=== PATIENT | female | born 1995 | race Caucasian/White ===

== ENCOUNTER 2016-07-17 07:51 | Emergency (ER) | payer BC ==
[~2016-07-17] VITALS: Ht 162.6 cm; Wt 117.9 kg
[~2016-07-17 07:51] MED LIST: BACTRIM DS TAB1 EACH PO; DEPO-PROVE150 MG/1 M; IBUPROFEN 600600 M1 PO; IBUPROFEN200 M2 PO; KEFLEX500 M1 PO; MACROBID 100 M100 M1 PO; NORCO 5-325 TA1 EACH PO; ZOLOFT 50 MG TA50 MG PO
[2016-07-17 08:24] LABS: URINE BILIRUBIN NEGATIVE (Negative); URINE BLOOD 1+ (Negative); URINE COLOR YELLOW; URINE GLUCOSE-RANDOM* NEGATIVE (Negative); URINE KETONES NEGATIVE (Negative); URINE NITRITE NEGATIVE (Negative); URINE PROTEIN (DIPSTICK) NEGATIVE (Negative); URINE SPECIFIC GRAVITY >= 1.030 (1.003-1.035); URINE UROBILINOGEN 0.2 E.U./dl (0.2-1.0)
[2016-07-17 08:33] LABS: CASTS None Seen /LPF (None Seen); SQUAMOUS >10 Many /LPF (0-3)
[2016-07-17 08:34] LABS: CRYSTALS None Seen /LPF (None Seen); URINE RBC 0-2 Rare /HPF (0-2); URINE WBC 0-5 Rare /HPF (0-5)
[2016-07-17] MEDS ORDERED: TOBREX5 ML OPHTHALMIC (08:52)
[2016-07-17] MEDS ORDERED: TESSALON PERLE100 MG PO (08:52)
[2016-07-17] MEDS ORDERED: FLONASE 0.05%50 MCG NASAL (08:52)
[2016-07-17] MEDS ORDERED: PROAIR HFA8.5 GM INH (08:52)
[2016-07-17] MEDS ORDERED: CLARITIN10 MG PO (08:52)
[2016-07-17 09:34] VITALS: BP 142/57
== END 2016-07-17 09:35 | disposition home or self-care (01) ==
LOC: ER 07:51
PROVIDERS: Emergency Medicine
DX: J06.9 Acute upper respiratory infection, unspecified (principal); H10.89 Other conjunctivitis; F32.9 Major depressive disorder, single episode, unspecified

== ENCOUNTER 2019-04-18 10:12 | Emergency (ER) | payer OTHER ==
[~2019-04-18] VITALS: Ht 160 cm; Wt 117.9 kg
[~2019-04-18 10:12] MED LIST changes: +CLARITIN10 MG PO; +FLONASE 0.05%50 MCG NASAL; +PROAIR HFA8.5 GM INH; +TESSALON PERLE100 MG PO; +TOBREX5 ML OPHTHALMIC
[2019-04-18 10:13] VITALS: BP 161/95
[2019-04-18] MEDS ORDERED: VITAFOL-OB+DHA1 EACH PO (10:17)
[2019-04-18 10:31] LABS: URINE BILIRUBIN NEGATIVE (Negative); URINE BLOOD NEGATIVE (Negative); URINE CLARITY CLEAR; URINE COLOR YELLOW; URINE GLUCOSE-RANDOM* NEGATIVE (Negative); URINE KETONES NEGATIVE (Negative); URINE LEUKOCYTES-REFLEX TRACE (Negative); URINE NITRITE-REFLEX NEGATIVE (Negative); URINE PROTEIN (DIPSTICK) NEGATIVE (Negative); URINE SPECIFIC GRAVITY 1.015 (1.005-1.035); URINE UROBILINOGEN 0.2 E.U./dl (0.2-1.0)
== END 2019-04-18 10:43 | disposition home or self-care (01) ==
LOC: ER 10:12
PROVIDERS: Emergency Medicine
DX: O26.891 Other specified pregnancy related conditions, first trimester (principal); Z20.2 Contact with and (suspected) exposure to infections with a predominantly sexual mode of transmission; F32.9 Major depressive disorder, single episode, unspecified; Z3A.13 13 weeks gestation of pregnancy

== ENCOUNTER 2021-01-07 07:13 | Emergency (ER) | payer OTHER ==
[~2021-01-07] VITALS: Ht 160 cm; Wt 117.9 kg
[~2021-01-07 07:13] MED LIST changes: +VITAFOL-OB+DHA1 EACH PO
[2021-01-07 07:20] VITALS: BP 155/91
[2021-01-07] MEDS ORDERED: CIPRODEX OTIC7.5 ML OTIC (07:23)
[2021-01-07] MEDS ORDERED: AMOX TR-K CLV1 EAC4 PO (07:52)
[2021-01-07] MEDS ORDERED: MEDROLDOSEPACK PO (07:52)
== END 2021-01-07 08:02 | disposition home or self-care (01) ==
LOC: ER 07:13
DX: H66.91 Otitis media, unspecified, right ear (principal); H60.91 Unspecified otitis externa, right ear; F32.9 Major depressive disorder, single episode, unspecified; Z79.899 Other long term (current) drug therapy